=== PATIENT | male | born 1965 | race Caucasian/White ===

== ENCOUNTER 2017-07-24 05:52 | Day surgery (SDC) | payer BC ==
[~2017-07-24] VITALS: Ht 180.3 cm; Wt 97.1 kg
[2017-07-24] VITALS (10 sets, daily range): BP systolic 124–181; BP diastolic 68–89
[2017-07-24] MEDS ORDERED: LISINOPRIL40 MG ORAL (06:24)
[2017-07-24] MEDS ORDERED: PROSCAR5 MG ORAL (06:24)
[2017-07-24] MEDS ORDERED: Betadine 10% Oint 15gm TOPIC ONE (07:00)
[2017-07-24] MEDS ORDERED: Bacitracin Oint 15gm Tube TOPIC ONE (07:01)
[2017-07-24] MEDS ORDERED: Bupivacaine 0.5% Inj 30 ml vial INJ ONE (07:01)
[2017-07-24] MEDS ORDERED: Lidocaine 1% Plain 30 ml INJ ONE (07:01)
[2017-07-24] MEDS ORDERED: Dexamethasone 4mg/ml vial ONE (07:01)
--- NOTE | 2017-07-24 07:07 | Anethesia Preoperative Eval ---
Anesthesia Pre-op PMH/ROS General Date of Evaluation: Jul 24, 2017 Anesthesiologist: Saul ASA Score: ASA 2 Mallampati Score Class I : Soft palate, uvula, fauces, pillars visible Class II: Soft palate, uvula, fauces visible Class III: Soft palate, base of uvula visible Class IV: Only hard plate visible Mallampati Classification: Class III Surgeon: Lion Diagnosis: Right foot bunion Surgical Procedure: Right foot bunionectomy Anesthesia History: none Family History: no anesthesia problems Allergies: Coded Allergies: Cat Dander (Verified Allergy, Severe, 07/24/17) SWELLING AND ASTHMA PENICILLINS (Verified Allergy, Severe, 07/24/17) respiratory system shuts down Medications: see eMAR Past Medical History Cardiovascular: Reports: HTN, Denies: CAD, SC, valve dz, arrhythmia, other Pulmonary: Reports: asthma, Denies: COPD, [place], other Gastrointestinal/Genitourinary: Reports: other - BPH, Denies: GERD, CRI, ESRD Neurologic/Psychiatric: Reports: depression/anxiety, Denies: dementia, CVA, TIA, other Endocrine: Denies: DM, hypothyroidism, steroids, other HEENT: Denies: cataract (L), cataract (R), glaucoma, [place] (L), [place] (R), other Hematology/Immune: Denies: anemia, DVT, bleeding disorder, other Musculoskeletal/Integumentary: Denies: OA, RA, DJD, DDD, edema, other Other: obesity PSxH Narrative: septoplasty, hemorrhoidectomy Anesthesia Pre-op Phys. Exam Physician Exam Last Vital Signs Date Time Temp Pulse Resp B/P (MAP) Pulse Ox O2 Delivery O2 Flow Rate FiO2 07/24/17 06:25 98.8 80 20 141/81 95 Room Air Constitutional: NAD Cardiovascular: RRR Respiratory: CTA Airway Exam Mallampati Score: Class III MO: limited ROM: full Teeth: intact Anesthesia Pre-op A/P Labs see chart Studies Pre-op Studies: EKG - sr Risk Assessment & Plan Assessment: ASA II Plan: MAC Status Change Before Surgery: No Pre-Antibiotics Drug: Ancef 2g Given Within 1 Hr of Incision: DIONISIO Park M.D. Jul 24, 2017 07:07
[2017-07-24] MEDS ORDERED: LR 1000ml 1,000 ML IVLG SCH (07:11)
[2017-07-24] MEDS ORDERED: fentaNYL 100 mcg/2 mL IV PRN (07:15)
[2017-07-24] MEDS ORDERED: DiphenhydrAMINE 50mg/ml Inj IVP PRN (07:15)
[2017-07-24] MEDS ORDERED: Hydromorphone 0.5mg/0.5ml inj IVP PRN (07:15)
[2017-07-24] MEDS ORDERED: Propofol 1,000mg/ 100ml btl IV ONE (07:30)
[2017-07-24] MEDS ORDERED: LR 1000ml ONE (07:34)
[2017-07-24] MEDS ORDERED: Lidocaine 1% MPF 10mg/ml 5ml ONE (07:34)
[2017-07-24] MEDS ORDERED: Midazolam 2mg/2ml Inj ONE (07:34)
[2017-07-24] MEDS ORDERED: Propofol 200mg/20ml IV ONE (07:34)
[2017-07-24] MEDS ORDERED: DiphenhydrAMINE 50mg/ml Inj ONE (07:34)
[2017-07-24] MEDS ORDERED: fentaNYL 100 mcg/2 mL IV ONE (07:34)
--- NOTE | 2017-07-24 07:36 | Pre-Procedure Note/Attestation ---
Pre-Procedure Note/Attestation Complete Prior to Procedure Planned Procedure: right Procedure Narrative: Bunionectomy right foot Indications for Procedure Pre-Operative Diagnosis: Hallux Valgus right foot Hallux Limitus right foot Attestation I attest that I discussed the nature of the procedure; its benefits; risks and complications; and alternatives (and the risks and benefits of such alternatives ), prior to the procedure, with the patient (or the patient's legal sales account representative). I attest that, if there was a reasonable possibility of needing a blood transfusion, the patient (or the patient's legal sales account representative) was given the [facility] standardized written summary, pursuant to the [place] Blood Safety Act ([place] Health and Safety Code # 1645, as amended). I attest that I re-evaluated the patient just prior to the surgery and that there has been no change in the patient's H&P, except as documented below: GLENN STEIN Jul 24, 2017 07:36
[2017-07-24] MEDS ORDERED: Clindamycin 6 ML ONE (07:53)
--- NOTE | 2017-07-24 08:47 | Brief Operative Note ---
Immediate Post Operative Note Operative Note Chief Complaint: Pain right foot Pre-op Diagnosis: Hallux Valgus right foot Hallux Limitus right foot Procedure: Bunionectomy right foot Post-op Diagnosis: same as pre-op Surgeon: Lion Anesthesiologist: Lonny Anesthesia: general Specimen: yes Complications: none Condition: stable Fluids: 50 Estimated Blood Loss: none Drains: none Implant(s) used?: No GLENN STEIN Jul 24, 2017 08:47
--- NOTE | 2017-07-24 08:57 | Immediate Post-Op Evaluation ---
Immediate Post-Op Evalulation Immediate Post-Op Evalulation Procedure: Right foot bunionectomy Date of Evaluation: Jul 24, 2017 Time of Evaluation: 08:57 IV Fluids: 1.1L Blood Products: 0 Estimated Blood Loss: min Urinary Output: 0 Blood Pressure Systolic: 161 Blood Pressure Diastolic: 72 Pulse Rate: 94 Respiratory Rate: 16 O2 Sat by Pulse Oximetry: 96 Temperature (Fahrenheit): 98.2 Pain Score (1-10): 0 Nausea: No Vomiting: No Complications 0 Patient Status: awake, reacts, patent, none Hydration Status: adequate Drug: Clindamycin 900mg Given Within 1 Hr of Incision: Yes Time Given: 07:45 DIONISIO MARTINEZ M.D. Jul 24, 2017 08:57
--- NOTE | 2017-07-24 09:00 | 48 Hour Post Anesthesia Eval ---
Post Anesthesia Evaluation Procedure: Right foot bunionectomy Date of Evaluation: Jul 24, 2017 Airway: patent Nausea: No Vomiting: No Pain Intensity: 0 Hydration Status: adequate Cardiopulmonary Status: at baseline Mental Status/LOC: patient returned to baseline Post-Anesthesia Complications: 0 Follow-up care needed: ready to discharge DIONISIO MARTINEZ M.D. Jul 24, 2017 09:00
--- NOTE | 2017-07-24 12:46 | Diagnostic Imaging Report ---
Indication: Right foot pain. Postop. Comparison: None Findings: 3 views of the right foot were obtained. Small focus of air and soft tissue swelling in the area of the first MTP joint noted. The joint is slightly subluxed. The nature of the surgery is not known. There is no acute fracture or malalignment. There is loss of the plantar arch of the foot. IMPRESSION: Postop from right foot surgery.
--- NOTE | 2017-07-24 15:00 | Pre-op HX & Phy Repo 2 SIG ---
DATE OF ADMISSION: 07/24/2017 PODIATRIC HISTORY AND PHYSICAL HISTORY OF PRESENT ILLNESS: This is a 51-year-old white male that is admitted today for elective right foot bunionectomy. The patient has been under my care for many years. He has been complaining of pain from his right foot during the last few months, which has been exacerbated and not controlled by orthotics and shoe-gear modification. The patient was seen in my office recently and was consulting on surgical correction. PAST MEDICAL AND SURGICAL HISTORY: Remarkable for hypertension and cardiac disease. The patient underwent repair of deviated septum at the age of 22. He had hemorrhoidectomy in 2010. MEDICATIONS: Proscar and lisinopril. ALLERGIES: Penicillin. PODIATRIC PHYSICAL EXAMINATION: VASCULAR STUDIES: Dorsalis pedis and posterior tibial arteries are equally palpable measuring 2/4 bilaterally. Capillary filling time is less than 3 seconds to all digits bilaterally. Homans sign is negative. No varicosities are noted bilateral lower extremity. NEUROLOGICAL: Exam reveals intact reflexes. Achilles and patellar measuring 2/4 bilaterally. The sensation, proprioception, and vibration sensation are all intact bilateral lower extremity. Babinski is negative. Clonus is absent. MUSCULOSKELETAL: Examination reveals hallux abductovalgus with bunion deformity, bilateral foot, the right hallux is worse than the left. The range of motion of the first metatarsophalangeal joint on the right side is reduced. Crepitation is noted. The patient also exhibits external femoral position bilaterally. DERMATOLOGICAL: Examination reveals no scars, lesions, or ulcerations bilaterally. All nails are present and healthy. ASSESSMENT: 1. Hallux abductovalgus with bunion deformity. 2. Hallux limitus, right foot. PLAN: The patient is admitted today for bunionectomy of the right foot. The discussion with the patient consisted of the type of procedure to be performed. The patient understands that the bunionectomy will not alleviate the joint conditions, which may necessitate future procedure. Postoperative instructions were given to the patient. Postoperative medication was dispensed. The patient elects to proceed with surgery. Michele Seymour D.P.M. DR: MAURA JOB#: [id number] CC:
--- NOTE | 2017-07-24 16:30 | Operative Note - Dictated ---
DATE OF OPERATION: 07/24/2017 SURGEON: Michele Seymour D.P.M. ANESTHESIOLOGIST: Kamryn Mukherjee M.D. ANESTHESIA: General. PREOPERATIVE DIAGNOSES: 1. Hallux abductovalgus with bunion deformity, right foot. 2. Hallux limitus, right foot. POSTOPERATIVE DIAGNOSES: 1. Hallux abductovalgus with bunion deformity, right foot. 2. Hallux limitus, right foot. PROCEDURE PERFORMED: Modified Figueroa type bunionectomy, right foot. DESCRIPTION OF THE OPERATION: The patient was brought to the operating room and was placed on the operating room table in supine position. IV sedation was administered by the anesthesiologist. Local anesthesia consisting of 0.5% Marcaine plain total of 18 mL was administered to the right foot. An ankle tourniquet was applied to the right lower extremity. The foot was prepped and draped in the usual sterile manner. An Esmarch bandage was then utilized to exsanguinate the blood and the right ankle tourniquet was inflated to 250 mmHg. Attention was then directed to the right hallux where an approximately 6 cm dorsal linear skin incision was centered over the first metatarsophalangeal joint. The incision was deepened utilizing sharp and blunt dissection with care being taken to cauterize and ligate all bleeders. At the level of the capsule, a linear capsulotomy was performed. The capsule was reflected medially and laterally. At this point, three loose osteophytes were identified and were resected in total. The bone was flushed utilizing sterile saline. Utilizing a sagittal saw, the medial eminence was resected in total. Utilizing a sagittal saw again, the dorsal exostosis was resected in total and part of the dorsal lateral exostosis was resected in total. The remaining bone was rasped smooth. The wound was copiously flushed utilizing sterile saline. At this point, a lateral release was performed utilizing a 67 blade. The wound was inspected and had appeared to be in a rectus position. The capsule was then reapproximated utilizing 3-0 Vicryl in a simple interrupted type stitch. This subcutaneous tissue was then reapproximated utilizing 4-0 Vicryl in a buried knot type stitch. The skin was then reapproximated utilizing 4-0 nylon in a simple interrupted type stitch. The wound was dressed utilizing an Adaptic 4x4, and 3-inch Jair. Right ankle tourniquet was deflated and vascular supply was noted to all digits of the right foot. The patient tolerated the procedure well. Left the operating room to recovery room with all vital signs stable. Michele Seymour D.P.M. DR: MAURA JOB#: [id number] CC:
== END 2017-07-24 11:05 | disposition home or self-care (01) ==
LOC: SUR 05:52
DX: M20.11 Hallux valgus (acquired), right foot (principal); M20.5X1 Other deformities of toe(s) (acquired), right foot; I10 Essential (primary) hypertension; I25.10 Atherosclerotic heart disease of native coronary artery without angina pectoris; Z88.0 Allergy status to penicillin; F41.9 Anxiety disorder, unspecified; F32.9 Major depressive disorder, single episode, unspecified
CPT/HCPCS: 28292; 73630; J1100; J1200; J2001; J2250; J2704; J3010; J3490; J7120; S0077; 94003; 94150